=== PATIENT | male | born 1995 | race Caucasian/White ===

== ENCOUNTER 2017-08-09 12:05 | Emergency (ER) | payer OTHER ==
--- NOTE | 2017-08-09 14:25 | UC ---
Headache HPI - HPI Summary HPI Summary: woke up today normally but once he was moving around he had a pain in the back of his head with flashes of light and some dizziness. took some ibuprofen with relief and h/a has gone away but he still doesnt feel good. no hx of migraines - History Of Current Complaint Chief Complaint: Anil Stated Complaint: MIGRAINE THIS AM Time Seen by Provider: 08/09/17 14:22 Hx Obtained From: Patient Onset/Duration: Sudden Onset Onset Of Symptoms: Sudden Initially Headache Was: Initial Pain Scale(0-10)= - 8 Currently Pain Is: Current Pain Scale(0-10)= - 0 Character: Migraine Location of Headache: Occipital Aggravating Factor(s): Nothing Allevating Factor(s): Rest, Medication Associated Signs And Symptoms: Positive: Visual Changes - Risk Factors SAH Risk Factors: Negative - Allergies/Home Medications Allergies/Adverse Reactions: Allergies Allergy/AdvReac Type Severity Reaction Status Date / Time Amoxicillin Allergy Hives Verified 08/09/17 14:05 Azithromycin Allergy Hives Verified 08/09/17 14:05 Home Medications: Home Medications Ibuprofen TAB* [Motrin TAB* 600 MG] 600 mg PO Q6H PRN 08/09/17 [History Confirmed 08/09/17] PMH/Surg Hx/FS Hx/Imm Hx Previously Healthy: Yes - Surgical History Surgical History: Yes Surgery Procedure, Year, and Place: thumb - Social History Alcohol Use: None Substance Use Type: None Smoking Status (MU): Never Smoked Tobacco Review of Systems Constitutional: Negative Skin: Negative Eyes: Photophobia ENT: Negative Respiratory: Negative Cardiovascular: Negative Gastrointestinal: Negative Genitourinary: Negative Neurological: Headache Psychological: Negative Is Patient Immunocompromised?: No All Other Systems Reviewed And Are Negative: Yes Physical Exam Triage Information Reviewed: Yes Appearance: Well-Appearing Vital Signs: Initial Vital Signs Temp 98.6 F 08/09/17 14:01 Pulse 69 08/09/17 14:01 Resp 16 08/09/17 14:01 BP 124/73 08/09/17 14:01 Pulse Ox 99 08/09/17 14:01 Vital Signs Reviewed: Yes Eye Exam: Normal ENT Exam: Normal Neck exam: Normal Respiratory Exam: Normal Cardiovascular Exam: Normal Psychological Exam: Normal Skin Exam: Normal Headache Course/Dx - Course Course Of Treatment: work note given for today - return tomorrow unless migraine returns. ibuprofen every 4-6 hours prn h/a as directed on bottle. f/ u pcp 1 week if migraine returns - Differential Dx/Diagnosis Provider Diagnoses: migraine Discharge - Discharge Plan Condition: Good Disposition: HOME Patient Education Materials: Migraine Headache (ED) Forms: *Work Release Referrals: No Primary Care Phys,NOPCP [Primary Care Provider] - 1 Week
== END 2017-08-09 14:41 | disposition home or self-care (01) ==
LOC: UCCORT 12:05
DX: G43.909 Migraine, unspecified, not intractable, without status migrainosus (principal)
CPT/HCPCS: 99201; G0463